=== PATIENT | male | born 1950 | race Caucasian/White ===

== ENCOUNTER 2023-01-07 13:51 | Outpatient (CLI) | payer MEDICARE, OTHER | END 2023-01-07 23:59 | disposition home or self-care (01) | LOC: CARD DIAG 13:51 | PROVIDERS: ATTEND Internal Medicine Cardiovascular Disease | DX: I08.8 Other rheumatic multiple valve diseases (principal); R06.02 Shortness of breath | CPT/HCPCS: 93306 ==

== ENCOUNTER 2024-09-16 08:57 | Day surgery (SDC) | payer MEDICARE, OTHER ==
[2024-09-15 13:49] LABS: BASOPHILS # (AUTO) 0.1 X10'3 (0-0.2); BASOPHILS % (AUTO) 0.6 % (0-1); EOSINOPHILS # (AUTO) 0.3 X10'3 (0-0.9); EOSINOPHILS % (AUTO) 3.9 % (0-6); HEMATOCRIT 46.4 % (42.0-52.0); HEMOGLOBIN 15.5 g/dl (14.0-17.9); LYMPHOCYTES # (AUTO) 3.2 X10'3 (1.1-4.8); LYMPHOCYTES % (AUTO) 36.4 % (21-51); MEAN CORPUSCULAR HGB CONC 33.3 g/dL (33.0-36.5); MEAN PLATELET VOLUME 8.4 FL (7.4-10.4); MONOCYTES # (AUTO) 0.8 X10'3 (0-0.9); MONOCYTES % (AUTO) 9.1 % (2-12); NEUTROPHILS # (AUTO) 4.5 X10'3 (1.8-7.7); PLATELET COUNT 261 X10'3 (140-440); RED BLOOD COUNT 5.33 X10'6 (4.70-6.10); WHITE BLOOD COUNT 8.9 X10'3 (4.5-11.0)
[2024-09-15 14:02] LABS: ALBUMIN 3.8 G/DL (3.4-5.0); ANION GAP 7 (8-16); BLOOD UREA NITROGEN 13 MG/DL (7-18); BUN/CREATININE RATIO 19.7 (10.0-20.0); CHLORIDE 103 MMOL/L (99-107); CREATININE 0.66 MG/DL (0.60-1.10); GLUCOSE 103 MG/DL (70-104); POTASSIUM 4.2 MMOL/L (3.5-5.1); SODIUM 140 MMOL/L (135-145); TOTAL CARBON DIOXIDE 30.5 MMOL/L (24-32); eGFR > 90 ML/MIN
[2024-09-15 14:23] LABS: APTT 31 SECONDS (22-32); INR 1.1 INR; PROTHROMBIN TIME 11.4 SECONDS (9.0-12.0)
[~2024-09-16] VITALS: Ht 170.2 cm; Wt 125.7 kg
[2024-09-16] VITALS (10 sets, daily range): BP systolic 102–119; BP diastolic 60–74; PULSE 63–76; RESP 11–15; O2SAT 93–96
[2024-09-16] MEDS ORDERED: verapamil 2.5 mg/ml inj IV ONE (09:06)
[2024-09-16] MEDS ORDERED: heparin 1,000unit/ml 10ml vial 10 ML ONE (09:06)
[2024-09-16] MEDS ORDERED: fentaNYL/PF 50MCG/1 ML 2ML syringe ONE (09:06)
[2024-09-16] MEDS ORDERED: midazolam 1 mg/ML 2ml injection ONE (09:06)
[2024-09-16] MEDS ORDERED: LIDOcaine 1% (10mg/ml) 2ml vial ONE ×2 (09:06→09:14)
[2024-09-16] MEDS ORDERED: iohexol 350 MG/ML 50ML vial IV ONE (09:06)
[2024-09-16] MEDS ORDERED: iohexol 350MG/ML 100ml bottle IV ONE (09:06)
[2024-09-16] MEDS ORDERED: nitroGLYCERIN 500mcg/5mL D5W 5 ML IV ONE (09:15)
[2024-09-16] MEDS ORDERED: SILD50TA PO (09:28)
[2024-09-16] MEDS ORDERED: GABA300C PO (09:28)
[2024-09-16] MEDS ORDERED: REVE175V INH (09:28)
[2024-09-16] MEDS ORDERED: LOSA100T58 PO (09:28)
[2024-09-16] MEDS ORDERED: ROSU20TA98 PO (09:28)
[2024-09-16] MEDS ORDERED: ALBU18HF2 INH (09:28)
[2024-09-16] MEDS ORDERED: OMEG-166 PO (09:28)
[2024-09-16] MEDS ORDERED: NITR0.4T48 (09:28)
[2024-09-16] MEDS: diphenhydrAMINE 25mg capsule PO PRN (09:48)
[2024-09-16] MEDS: LORazepam 0.5 MG tablet PO PRN (09:48)
[2024-09-16] MEDS: normal saline 1,000 ML IV SCH (09:48)
[2024-09-16] MEDS ORDERED: diphenhydrAMINE 50 mg/ml inj ONE (10:27)
[2024-09-16 14:55] LABS: ISTAT HGB MIX 13.9 g/dl (14.0-17.9); ISTAT Hct MIX 41 %PCV (42-52); ISTAT O2 SATURATION MIX VENOUS 62 % (60-80); ISTAT SOURCE BLNK
[2024-09-16 14:56] LABS: ISTAT HGB ART 14.3 g/dl (14.0-17.9); ISTAT Hct ART 42 %PCV (42-52); ISTAT O2 SATURATION ARTERIAL 95 % (95-98); ISTAT SOURCE BLNK
== END 2024-09-16 16:00 | disposition home or self-care (01) ==
LOC: SSTAY O 08:57
PROVIDERS: ATTEND Internal Medicine Cardiovascular Disease
DX: R94.39 Abnormal result of other cardiovascular function study (principal); I25.10 Atherosclerotic heart disease of native coronary artery without angina pectoris; I50.32 Chronic diastolic (congestive) heart failure; R07.9 Chest pain, unspecified; I11.0 Hypertensive heart disease with heart failure; E78.5 Hyperlipidemia, unspecified; J44.9 Chronic obstructive pulmonary disease, unspecified; G47.30 Sleep apnea, unspecified; E66.9 Obesity, unspecified; K21.9 Gastro-esophageal reflux disease without esophagitis; Z68.41 Body mass index [BMI] 40.0-44.9, adult; Z98.890 Other specified postprocedural states; Z79.899 Other long term (current) drug therapy
CPT/HCPCS: 36415; 80048; 82803; 85014; 85025; 85610; 85730; 93005; 93460; 99152; 99153; A4615; A6258; A6402; C1725; C1751; C1894; J1200; J1644; J2003; J2250; J3010; J3490; J7030; Q0163; Q9967; Z7610; 76937; A6449